=== PATIENT | male | born 1990 ===

== ENCOUNTER 2016-09-02 09:57 | Emergency (ER) | payer BC, MEDICAID, OTHER ==
[2016-09-02] MEDS ORDERED: Fluorescein Sodium TOPICAL* 1 MG TEST OPHTHALMIC ONE ×2 (10:56→11:24)
[2016-09-02] MEDS ORDERED: Artificial Tears* 15 ML BTL BOTH EYES ONE (11:00)
--- NOTE | 2016-09-02 11:04 | UC ---
Eye Complaint HPI - HPI Summary HPI Summary: 26 y/o male presents to the urgent care c/o of RT eye irritation and tearing and mild pain since this morning. Patient reports he feels something is inside his Rt eye. Denies Headache, visual disturbances, fever, eye discharge, SOB, N/ V/D. He denies weraring contact lenses. 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 Negative: Photophobia, Drainage (Purulent), Vision Impairment Bilateral, Vision Impairment Right, Vision Impairment Left, Fever, Swelling - Risk Factors Penetrating Injury Risk Factor: Negative Acute Glaucoma Risk Factors: Negative - Allergies/Home Medications Allergies/Adverse Reactions: Allergies Allergy/AdvReac Type Severity Reaction Status Date / Time Penicillins [PCN] Allergy Rash Verified 09/02/16 10:05 Home Medications: Home Medications NK [No Home Medications Reported] 09/02/16 [History Confirmed 09/02/16] PMH/Surg Hx/FS Hx/Imm Hx Previously Healthy: Yes Psychological History: Bipolar Disorder, Other Other Psychological History: asperger syndrome - Surgical History Surgical History: None - Family History Known Family History: Positive: None - Social History Occupation: Employed Full-time Lives: With Family Alcohol Use: Rare Substance Use Type: None Smoking Status (MU): Never Smoked Tobacco Review of Systems Constitutional: Negative Skin: Negative Eyes: Eye Redness, Other - foreing body sensation ENT: Negative Respiratory: Negative Cardiovascular: Negative Gastrointestinal: Negative Genitourinary: Negative Motor: Negative Neurovascular: Negative Musculoskeletal: Negative Neurological: Negative Psychological: Negative All Other Systems Reviewed And Are Negative: Yes Physical Exam Triage Information Reviewed: Yes Appearance: Well-Appearing, No Pain Distress, Well-Nourished, Thin Vital Signs: Initial Vital Signs Temp 98.5 F 09/02/16 10:05 Pulse 59 09/02/16 10:05 Resp 16 09/02/16 10:05 BP 122/67 09/02/16 10:05 Pulse Ox 100 09/02/16 10:05 Vital Signs Reviewed: Yes Eyes: Positive: Conjunctiva Inflamed, Discharge - watery discharge, Other: - Eyes: PERRLA, EOMI bilaterraly. mild red RT conjunctiva. Vision: 20/20 wears glasess. No tenderness on palpation bilaterally. ENT Exam: Normal ENT: Positive: Normal ENT inspection, Hearing grossly normal, Pharynx normal, TMs normal. Negative: Nasal congestion, Nasal drainage Neck exam: Normal Neck: Positive: Supple, Nontender, No Lymphadenopathy Respiratory Exam: Normal Respiratory: Positive: Chest non-tender, Lungs clear, Normal breath sounds Cardiovascular Exam: Normal Cardiovascular: Positive: RRR, No Murmur, Pulses Normal Abdominal Exam: Normal Abdomen Description: Positive: Nontender, No Organomegaly Bowel Sounds: Positive: Present Musculoskeletal Exam: Normal Neurological Exam: Normal Psychological Exam: Normal Skin Exam: Normal Eye Complaint Course/Dx - Course Course Of Treatment: RT eye foreign body: Hx taken, PE abnormal finding:Eyes: Positive: Conjunctiva Inflamed, Discharge - watery discharge, , no photophobia Other: - Eyes: PERRLA, EOMI bilaterraly. mild red RT conjunctiva. Vision: 20/ 20 wears glasess. No tenderness on palpation bilaterally. Fluorescein dye placed on RT eye with saline drops: There no foreing body observed, but there is mild fluorescein stainin 2 small spots. Pt referred to the Opthalmologist with appt at 1:40pm at [facility] with Dr Galaviz to r/o corneal abrasion. Pt advised no to rub eye. Patient understood and agreed. - Differential Dx/Diagnosis Differential Diagnosis/HQI/PQRI: Conjunctivitis, Corneal Abrasion, Foreign Body , Periorbital Cellulitis, Orbital Cellulitis Provider Diagnoses: RT eye irritation r/o corneal abrasion Discharge - Discharge Plan Condition: Stable Disposition: HOME Patient Education Materials: Corneal Abrasion (ED) Referrals: Sarah Walter MD [Primary Care Provider] - Pinky Galaviz [Medical Doctor] - (You have an appt at 1:40pm with Dr Galaviz at [facility] opthalmologist group to r/o corneal abrasion. Please arrive 15min early.) Additional Instructions: Please f/u with the nuclear control room operator appt to r/o corneal abrasion.
[2016-09-02] MEDS ORDERED: BSS OPTH.SOL* BTL OPHTHALMIC ONE (11:05)
== END 2016-09-02 11:58 | disposition home or self-care (01) ==
LOC: UCEAST 09:57
DX: H57.9 Unspecified disorder of eye and adnexa (principal)
CPT/HCPCS: 99202; A9270-GY; G0463